=== PATIENT | female | born 1950 | race Caucasian/White ===

== ENCOUNTER 2022-03-09 14:21 | Outpatient (RCR) | payer MEDICARE, SELFPAY | END 2022-04-21 11:08 | disposition home or self-care (01) | LOC: HO.WCC 14:21 | PROVIDERS: PCP Internal Medicine; Referring Provider Podiatrist; Visit Provider Surgery | DX: L97.422 Non-pressure chronic ulcer of left heel and midfoot with fat layer exposed (principal); L08.9 Local infection of the skin and subcutaneous tissue, unspecified; I73.00 Raynaud's syndrome without gangrene; Z79.2 Long term (current) use of antibiotics | CPT/HCPCS: 11042; 99212 ==

== ENCOUNTER 2022-03-22 16:13 | Outpatient (REF) | payer MEDICARE, SELFPAY | END 2022-03-22 16:14 | disposition home or self-care (01) | LOC: HO.LNP 16:13 | PROVIDERS: Visit Provider Podiatrist | DX: L97.522 Non-pressure chronic ulcer of other part of left foot with fat layer exposed (principal) | CPT/HCPCS: 87071; 87077; 87186; 87205 ==